=== PATIENT | male | born 1990 | race Caucasian/White ===

== ENCOUNTER 2024-11-02 16:39 | Emergency (ER) | payer BC ==
[~2024-11-02] VITALS: Ht 167.6 cm; Wt 79.8 kg
--- NOTE | 2024-11-02 16:47 | ELECTROCARDIOGRAPH REPORT ---
[facility] Test Date: 2024-11-02 Test Time: 16:44:55 Pat Name: AMERICO LANCASTER Department: EMERGENCY ROOM Room: Gender: M Bobcat Driver/Labor: JI : 1990 Requested By: LASHAY CROWLEY Order Number: [id number] Reading MD: Measurements Intervals [place] Rate: 75 P: 53 NC: 146 QRS: 99 QRSD: 95 T: -10 QT: 363 QTc: 406 Interpretive Statements Sinus rhythm Borderline right axis deviation Borderline T abnormalities, inferior leads Please click the below link to view image of tracing.
[2024-11-02 16:49] VITALS: TEMP 98.8
[2024-11-02 17:00] LABS: MEAN PLATELET VOLUME 8.2 FL (7.4-10.4); RED CELL DISTRIBUTION WIDTH 12.6 % (11.5-14.5)
[2024-11-02 17:07] VITALS: BP 117/74; PULSE 77; O2SAT 98
[2024-11-02 17:10] VITALS: RESP 11
--- NOTE | 2024-11-02 17:10 | RADIOLOGY REPORT ---
CHEST RADIOGRAPH Indication: CP Technique: Single frontal view of the chest was obtained COMPARISON: None FINDINGS: Lines and Tubes: None Lungs: Clear Pleura: No effusion. No pneumothorax. Cardiomediastinal contours: Unremarkable Bones: Unremarkable IMPRESSION: 1. No acute disease.
[2024-11-02 17:18] LABS: CREATININE 1.16 MG/DL (0.60-1.10); PRO BRAIN NATRIURETIC PEPTIDE 38 PG/ML (0-125); TOTAL CARBON DIOXIDE 24.8 MMOL/L (24-32); eCRCL 82 ML/MIN; eGFR 73 ML/MIN
[2024-11-02] MEDS ORDERED: NO HOME MEDS (17:19)
[2024-11-02] MEDS ORDERED: PANT40TA54 PO (17:47)
--- NOTE | 2024-11-02 17:47 | Physician Documentation ---
History of Present Illness ~ Chief Complaint: Chest Pain Stated Complaint: CP/SOB Time Seen by MD: 16:56 Mode of Arrival: POV HPI 34-year-old male with complaints of sternal chest pain that he has had intermittently along with history of costochondritis, anxiety, PTSD served in the , for over a year. Patient has had some formal workup by his provider but he is concerned that it could be cardiac related although he describes almost an epigastric warmth at times that he states it feels like an adrenaline thompson intermittently with his chest pain. Patient denies any reproducible chest pain but does elicit that when he has this chest pain at times he gets numbness to his fingertips. Patient does not feel like it is anxiety related. He will have some chest tightness and if he takes a deep breath he feels like he gets less short of breath. No chest trauma no pain with palpation. Patient denies pain with deep breathing. Medication Reconciliation Allergies: Coded Allergies: No Known Allergies (Unverified , 11/02/24) Scheduled Pantoprazole Sodium (Pantoprazole Sodium), 1 TAB PO DAILY Miscellaneous Medications Home Med List (No Home Medications), (Reported) Past Medical History Past Medical History: Anxiety Lives In: Home Occupation: employed Review of Systems All Other Systems at this time: Reviewed and Negative Cardiovascular: Reports: see HPI Physical Exam Vital Signs: RN Vital Signs have been reviewed: Yes, Temperature: 98.8, Source: Temporal, Heart Rate: 77, Respiratory Rate: 11, BP: 117/74, Pulse Oximetry: 98, Weight: 79.800 General Appearance: alert, WD/WN, no apparent distress Respiratory: lungs clear, normal breath sounds, no respiratory distress Chest: no accessory muscle use; No: retractions Cardiovascular: normal peripheral pulses, regular rate, rhythm, no edema, no JVD Extremities: normal inspection Neurologic: oriented x4 Psychiatric: normal mood/affect Skin: normal color, warm/dry Progress Results/Orders Results/Orders Vital Signs 11/02/24 11/02/24 11/02/24 16:49 17:07 17:10 Temp 98.8 Pulse 80 77 Resp 17 14 11 B/P (MAP) 135/86 117/74 (88) Pulse Ox 98 98 Laboratory Tests Test 11/02/24 16:48 White Blood Count 7.2 Red Blood Count 4.51 L Hemoglobin 13.7 L Hematocrit 40.4 L Mean Corpuscular Volume 89.6 Mean Corpuscular Hemoglobin 30.3 Mean Corpuscular Hemoglobin Concent 33.9 Red Cell Distribution Width 12.6 Platelet Count 273 Mean Platelet Volume 8.2 Neutrophils (%) (Auto) 47.9 Lymphocytes (%) (Auto) 43.9 Monocytes (%) (Auto) 6.3 Eosinophils (%) (Auto) 1.5 Basophils (%) (Auto) 0.4 Neutrophils # (Auto) 3.5 Lymphocytes # (Auto) 3.2 Monocytes # (Auto) 0.5 Eosinophils # (Auto) 0.1 Basophils # (Auto) 0.0 CBC Comment Sodium Level 138 Potassium Level 3.7 Chloride Level 105 Carbon Dioxide Level 24.8 Anion Gap 8 Blood Urea Nitrogen 17 Creatinine 1.16 H Estimated GFR/1.73 m2 73 BUN/Creatinine Ratio 14.7 Glucose Level 142 H Calcium Level 8.8 Troponin I High Sensitivity 4 Pro-B-Type Natriuretic Peptide 38 Albumin 4.2 Chemistry Comments EKG/XRAY/CT/US/VASC/MRI EKG : Additional Comment EKG shows sinus rhythm borderline right axis deviation at [address]-T abnormalities Chest X-Ray : Additional Comments CHEST RADIOGRAPH Indication: CP Technique: Single frontal view of the chest was obtained COMPARISON: None FINDINGS: Lines and Tubes: None Lungs: Clear Pleura: No effusion. No pneumothorax. Cardiomediastinal contours: Unremarkable Bones: Unremarkable IMPRESSION: 1. No acute disease. Heart Score: Heart Score Response (Comments) Value History Slightly Suspicious 0 EKG Normal 0 Age <45 0 Risk Factors No known risk factors 0 Troponin Normal limit 0 Total 0 Medical Decision Making Findings Does have history of anxiety and panic disorders. Patient describes his adrenaline rash which he points to his epigastric region and sternum which differentially could be some acid reflux as well as some numbness and tingling to his hands be another symptom of panic or anxiety. Patient does have primary care to complete a more formal workup if desired. Heart score 0. X-ray unremarkable sinus rhythm on EKG. Troponin negative. Differential Dx:Considerations: Include: angina, chest wall pain, costochondritis, esophageal reflux/spasm, gastritis, pleuritis Departure Time of Disposition: 17:46 Disposition: 01 HOME / SELF CARE / HOMELESS Impression: Primary Impression: Chest wall pain Condition: Stable Discharge Instructions: Nonspecific Chest Pain, Adult Additional Instructions: X-ray was clear, labs are unremarkable for any significant findings EKG shows sinus rhythm. At this time your chest pain does not appear to be cardiac related as you have had this intermittently for a while. It is advised to follow up with primary care for potentially a cardiology referral for a more formal cardiac workup. Referrals: NO PRIMARY CARE PROVIDER (PCP) Prescriptions Pantoprazole Sodium (Pantoprazole Sodium) 40 Mg Tablet.dr 1 TAB PO DAILY for 30 Days, #30 TAB 0 Refills Prov: ADELA MARIE NP 11/02/24 Education Educated: Patient Educated regarding: diagnosis, treatment, need for follow up Signature Scribe Signature: No scribe Attestation: The note accurately reflects work and decisions made by me.Adela Marie - AKIN 11/02/24 17:48 ADELA MARIE NP Nov 02, 2024 17:47
== END 2024-11-02 18:16 | disposition home or self-care (01) ==
LOC: ER 16:40
DX: R07.89 Other chest pain (principal); F41.9 Anxiety disorder, unspecified; Z79.899 Other long term (current) drug therapy
CPT/HCPCS: 36415; 71045; 80048; 83880; 84484; 85025; 93005; 99285